=== PATIENT | male | born 1965 | race Two or more races ===

== ENCOUNTER 2016-12-04 10:13 | Emergency (ER) | payer SELFPAY ==
[~2016-12-04] VITALS: Ht 170.2 cm; Wt 68.3 kg
[2016-12-04 12:39] VITALS: BP 136/68
== END 2016-12-04 12:39 | disposition home or self-care (01) ==
LOC: ED 10:13
DX: S42.002A Fracture of unspecified part of left clavicle, initial encounter for closed fracture (principal); V19.9XXA Pedal cyclist (driver) (passenger) injured in unspecified traffic accident, initial encounter; Y93.89 Activity, other specified; Y92.89 Other specified places as the place of occurrence of the external cause; Y99.8 Other external cause status; S63.502A Unspecified sprain of left wrist, initial encounter
CPT/HCPCS: A4570